=== PATIENT | female | born 1985 | race Caucasian/White ===

== ENCOUNTER 2021-07-25 09:41 | Day surgery (SDC) | payer OTHER ==
[2021-07-25 09:54] VITALS: BMI 21.6
[2021-07-25] MEDS ORDERED: KETOROLAC TROMETHAMINE 30 MG/1 ML VIAL IVPUSH ONE (10:38)
[2021-07-25] MEDS ORDERED: KETOROLAC TROMETHAMINE 60 MG/2 ML VIAL IM ONE (11:01)
[2021-07-25 11:11] LABS: HCG,QUALITATIVE URINE Positive
[2021-07-25 11:12] LABS: PH,URINE 6.5 (5.0-8.0); URINE APPEARANCE CLEAR; URINE BILIRUBIN NEGATIVE (NEGATIVE); URINE COLOR YELLOW; URINE GLUCOSE (UA) NEGATIVE (NEGATIVE); URINE KETONE TRACE (NEGATIVE); URINE LEUK ESTERASE NEGATIVE (NEGATIVE); URINE NITRITE NEGATIVE (NEGATIVE); URINE PROTEIN NEGATIVE (NEGATIVE)
[2021-07-25] MEDS ORDERED: KETOROLAC TROMETHAMINE 60 MG/2 ML VIAL ONE (11:17)
[2021-07-25 11:34] LABS: BASO % 0.4 % (0-2.0); EOS % 0.6 % (0-4.5); HEMATOCRIT 36.8 % (32.4-45.2); HEMOGLOBIN 12.6 GM/dL (10.7-15.3); LYMPH % 21.9 % (8-40); MCH 30.6 pg (25.7-33.7); MCHC 34.3 g/dl (32.0-36.0); MEAN CELL VOLUME 89.2 fl (80-96); MEAN PLT VOLUME 8.3 fl (7.5-11.1); MONO % 5.3 % (3.8-10.2); NEUT % 71.8 % (42.8-82.8); PLATELET COUNT 214 10^3/uL (134-434); RBC 4.13 M/mm3 (3.60-5.2); WHITE BLOOD COUNT 7.6 K/mm3 (4.0-10.0)
[2021-07-25 11:52] LABS: ALBUMIN 4.3 g/dl (3.4-5.0)
[2021-07-25 11:55] LABS: CREATININE 0.6 mg/dL (0.55-1.3)
[2021-07-25 11:56] LABS: BILIRUBIN,TOTAL 0.5 mg/dL (0.2-1)
[2021-07-25 11:57] LABS: TOT PROT 7.7 g/dl (6.4-8.2)
[2021-07-25] MEDS ORDERED: SODIUM CHLORIDE 1,000 ML IV STA (13:36)
[2021-07-25 14:17] LABS: PROTHROMBIN TIME (PATIENT) 11.5 SEC (9.7-13.0)
[2021-07-25 16:54] LABS: BASO % 0.7 % (0-2.0); EOS % 1.1 % (0-4.5); HEMATOCRIT 34.1 % (32.4-45.2); HEMOGLOBIN 11.4 GM/dL (10.7-15.3); MCHC 33.4 g/dl (32.0-36.0); MEAN CELL VOLUME 89.8 fl (80-96); MEAN PLT VOLUME 8.4 fl (7.5-11.1); MONO % 7.5 % (3.8-10.2); NEUT % 49.7 % (42.8-82.8); PLATELET COUNT 200 10^3/uL (134-434); RDW 13.9 % (11.6-15.6); WHITE BLOOD COUNT 7.7 K/mm3 (4.0-10.0)
[2021-07-25] MEDS ORDERED: LIDOCAINE HCL/PF 2% SDV 5ML VIAL ONE (17:16)
[2021-07-25] MEDS ORDERED: DEXAMETHASONE SOD PHOSPHATE 4 MG/1 ML VIAL ONE (17:16)
[2021-07-25] MEDS ORDERED: ONDANSETRON 4 MG/2 ML VIAL ONE (17:16)
[2021-07-25] MEDS ORDERED: GLYCOPYRROLATE 0.2 MG/1 ML VIAL ONE (17:16)
[2021-07-25] MEDS ORDERED: fentaNYL CITRATE 250 MCG/5 ML VIAL ONE ×2 (17:17→18:43)
[2021-07-25] MEDS ORDERED: ROCURONIUM BROMIDE 100 MG/10 ML VIAL ONE (17:17)
[2021-07-25] MEDS ORDERED: NEOSTIGMINE METHYLSULFATE 0.5 MG/ML - 10 ML MDV ONE (17:17)
[2021-07-25] MEDS ORDERED: PROPOFOL 20 ML ONE (17:17)
[2021-07-25] MEDS ORDERED: MIDAZOLAM HCL 2 MG/2 ML SINGLE DOSE VIAL ONE (17:17)
[2021-07-25] MEDS ORDERED: ceFAZolin SODIUM 1 GM VIAL IVPB ONE (17:50)
[2021-07-25] MEDS ORDERED: METOPROLOL TARTRATE 5 MG/5 ML VIAL ONE (18:38)
[2021-07-25] MEDS ORDERED: IBUPROFEN 600 MG TABLET (FP) PO PRN (18:49)
[2021-07-25] MEDS ORDERED: ONDANSETRON 4 MG/2 ML VIAL IVPUSH PRN ×2 (18:49→19:02)
[2021-07-25] MEDS ORDERED: IBUPROFEN 800 MG/8 ML IJ IVPB PRN (18:49)
[2021-07-25] MEDS ORDERED: ACETAMINOPHEN 1000 MG/100 ML BAG IVPB ONE (18:51)
[2021-07-25] MEDS ORDERED: ELECTROLYTE-148 SOLN 1,000 ML IV SCH (19:00)
[2021-07-25] MEDS ORDERED: ACETAMINOPHEN INJECTION 100 ML IVPB ONE (19:12)
[2021-07-25] MEDS ORDERED: LACTATED RINGERS SOLUTION 1,000 ML IV SCH (19:15)
[2021-07-25] MEDS: oxyCODONE HCL 5 MG TABLET PO PRN (23:09)
[2021-07-26] MEDS: oxyCODONE HCL 5 MG TABLET PO PRN ×2 (02:10→09:34)
[2021-07-26 07:50] LABS: HEMATOCRIT 29.2 % (32.4-45.2); HEMOGLOBIN 9.7 GM/dL (10.7-15.3); MCHC 33.1 g/dl (32.0-36.0); MEAN CELL VOLUME 90.4 fl (80-96); MEAN PLT VOLUME 8.6 fl (7.5-11.1); PLATELET COUNT 174 10^3/uL (134-434); RBC 3.22 M/mm3 (3.60-5.2); RDW 13.7 % (11.6-15.6); WHITE BLOOD COUNT 7.1 K/mm3 (4.0-10.0)
[2021-07-26 14:24] VITALS: BP 121/71; PULSE 68; TEMP 98.7
== END 2021-07-26 14:59 | disposition home or self-care (01) ==
LOC: JER 09:41 → UNDOADMIN 13:45 → JERBED 13:45 → JASUSAT 13:45 → J6S 20:39 → JASUSAT 07-26 14:59
PROVIDERS: ATTEND Obstetrics & Gynecology
PROC: 3E03329 Introduction of Other Anti-infective into Peripheral Vein, Percutaneous Approach (ICD-10-PCS; 2021-07-25)
PROC: 3E033NZ Introduction of Analgesics, Hypnotics, Sedatives into Peripheral Vein, Percutaneous Approach (ICD-10-PCS; 2021-07-25)
PROC: 3E0333Z Introduction of Anti-inflammatory into Peripheral Vein, Percutaneous Approach (ICD-10-PCS; 2021-07-25)
PROC: 3E0233Z Introduction of Anti-inflammatory into Muscle, Percutaneous Approach (ICD-10-PCS; 2021-07-25)
PROC: 3E033GC Introduction of Other Therapeutic Substance into Peripheral Vein, Percutaneous Approach (ICD-10-PCS; 2021-07-25)
PROC: 3E033GC Introduction of Other Therapeutic Substance into Peripheral Vein, Percutaneous Approach (ICD-10-PCS; 2021-07-25)
PROC: 3E0337Z Introduction of Electrolytic and Water Balance Substance into Peripheral Vein, Percutaneous Approach (ICD-10-PCS; 2021-07-25)
PROC: 3E0333Z Introduction of Anti-inflammatory into Peripheral Vein, Percutaneous Approach (ICD-10-PCS; principal; 2021-07-25 18:30)
DX: O00.102 Left tubal pregnancy without intrauterine pregnancy (principal); N93.9 Abnormal uterine and vaginal bleeding, unspecified
CPT/HCPCS: 36415; 76817-TC; 80053; 81003; 84702; 84703; 85025; 85027; 85610; 86850; 86900; 86901; 87086; 88305-TC; 93005; 93010; 94760; 99285-25; C9803; J0131; U0003; U0005

== ENCOUNTER 2023-04-29 15:04 | Emergency (ER) | payer OTHER ==
[2023-04-29 15:59] VITALS: BP 106/59; PULSE 73; RESP 19; TEMP 98.2; BMI 21.6
[2023-04-29 19:09] LABS: BASO % 0.4 % (0-2.0); EOS % 1.2 % (0-4.5); HEMATOCRIT 36.9 % (32.4-45.2); HEMOGLOBIN 12.6 GM/dL (10.7-15.3); LYMPH % 38.1 % (8-40); MCH 30.4 pg (25.7-33.7); MCHC 34.1 g/dl (32.0-36.0); MEAN CELL VOLUME 89.1 fl (80-96); MONO % 6.8 % (3.8-10.2); NEUT % 53.5 % (42.8-82.8); PLATELET COUNT 220 10^3/uL (134-434); RBC 4.15 M/mm3 (3.60-5.2); RDW 13.9 % (11.6-15.6); WHITE BLOOD COUNT 9.6 K/mm3 (4.0-10.0)
[2023-04-29 19:16] LABS: URINE APPEARANCE CLEAR; URINE BILIRUBIN NEGATIVE (NEGATIVE); URINE COLOR YELLOW; URINE GLUCOSE (UA) NEGATIVE (NEGATIVE); URINE KETONE TRACE (NEGATIVE); URINE LEUK ESTERASE NEGATIVE (NEGATIVE); URINE NITRITE NEGATIVE (NEGATIVE); URINE PROTEIN NEGATIVE (NEGATIVE)
[2023-04-29 20:05] LABS: POTASSIUM 4.2 mmol/L (3.5-5.1)
[2023-04-29 20:07] LABS: CALCIUM 8.9 mg/dL (8.5-10.1)
[2023-04-29 20:08] LABS: ALBUMIN 4.1 g/dl (3.4-5.0); BLOOD UREA NITROGEN 14.8 mg/dL (7-18)
[2023-04-29 20:11] LABS: CREATININE 0.8 mg/dL (0.55-1.3)
[2023-04-29 20:12] LABS: BILIRUBIN,TOTAL 0.3 mg/dL (0.2-1)
[2023-04-29 20:13] LABS: TOT PROT 7.5 g/dl (6.4-8.2)
[2023-04-29] MEDS ORDERED: LIDOCAINE 4% PATCH TP ONE (21:20)
[2023-04-29] MEDS ORDERED: LIDOCAINE PATCH REMOVAL MC SCH (22:00)
== END 2023-04-29 21:12 | disposition home or self-care (01) ==
LOC: JER 15:04
DX: O26.899 Other specified pregnancy related conditions, unspecified trimester (principal); R10.32 Left lower quadrant pain; Z3A.00 Weeks of gestation of pregnancy not specified
CPT/HCPCS: 36415; 76817-TC; 80053; 81003; 84702; 84703; 85025; 87086; 99284-25

== ENCOUNTER 2023-05-02 10:09 | Emergency (ER) | payer OTHER ==
[2023-05-02 10:14] VITALS: BP 113/58; PULSE 75; RESP 18; TEMP 98; BMI 22.1
== END 2023-05-02 11:45 | disposition home or self-care (01) ==
LOC: JERFT 10:09 → JER 10:09 → JERFT 11:45
DX: R89.1 Abnormal level of hormones in specimens from other organs, systems and tissues (principal)
CPT/HCPCS: 36415; 84702; 99283-25

== ENCOUNTER 2023-05-12 06:21 | Day surgery (SDC) | payer OTHER ==
[2023-05-12 07:03] VITALS: BMI 22.1
[2023-05-12] MEDS ORDERED: LACTATED RINGERS SOLUTION 1000 ML INFUS.BAG IV ONE (07:21)
[2023-05-12] MEDS ORDERED: ACETAMINOPHEN 1000 MG/100 ML BAG IVPB ONE (07:21)
[2023-05-12 07:45] LABS: URINE APPEARANCE CLEAR; URINE BILIRUBIN NEGATIVE (NEGATIVE); URINE COLOR YELLOW; URINE GLUCOSE (UA) NEGATIVE (NEGATIVE); URINE KETONE NEGATIVE (NEGATIVE); URINE LEUK ESTERASE NEGATIVE (NEGATIVE); URINE NITRITE NEGATIVE (NEGATIVE); URINE PROTEIN NEGATIVE (NEGATIVE)
[2023-05-12 08:33] LABS: BASO % 0.4 % (0-2.0); EOS % 0.1 % (0-4.5); HEMATOCRIT 36.4 % (32.4-45.2); HEMOGLOBIN 12.2 GM/dL (10.7-15.3); LYMPH % 14.6 % (8-40); MCH 30.3 pg (25.7-33.7); MCHC 33.5 g/dl (32.0-36.0); MEAN CELL VOLUME 90.5 fl (80-96); MEAN PLT VOLUME 8.4 fl (7.5-11.1); NEUT % 78.9 % (42.8-82.8); PLATELET COUNT 199 10^3/uL (134-434); RBC 4.02 M/mm3 (3.60-5.2); RDW 13.5 % (11.6-15.6)
[2023-05-12 08:40] LABS: PROTHROMBIN TIME (PATIENT) 11.6 SEC (9.7-13.0)
[2023-05-12 09:05] LABS: POTASSIUM 3.9 mmol/L (3.5-5.1)
[2023-05-12 09:07] LABS: ALBUMIN 3.9 g/dl (3.4-5.0); BLOOD UREA NITROGEN 8.2 mg/dL (7-18); CALCIUM 8.5 mg/dL (8.5-10.1)
[2023-05-12 09:10] LABS: CREATININE 0.6 mg/dL (0.55-1.3)
[2023-05-12 09:12] LABS: BILIRUBIN,TOTAL 0.4 mg/dL (0.2-1); TOT PROT 7.1 g/dl (6.4-8.2)
[2023-05-12] MEDS ORDERED: ONDANSETRON 4 MG/2 ML VIAL IVPUSH PRN (12:17)
[2023-05-12] MEDS ORDERED: LACTATED RINGERS SOLUTION 1,000 ML IV SCH (12:30)
[2023-05-12] MEDS ORDERED: LIDOCAINE HCL/PF 2% SDV 5ML VIAL ONE (12:40)
[2023-05-12] MEDS ORDERED: FENTANYL CITRATE/PF 50 MCG/ML VIAL ONE ×3 (12:40→13:23)
[2023-05-12] MEDS ORDERED: MIDAZOLAM HCL 2 MG/2 ML SINGLE DOSE VIAL ONE (12:41)
[2023-05-12] MEDS ORDERED: ROCURONIUM BROMIDE 50 MG/5 ML SYRINGE ONE (12:41)
[2023-05-12] MEDS ORDERED: BUPIVACAINE HCL/PF 0.5% (5MG/ML) 10 ML VIAL ONE (13:10)
[2023-05-12] MEDS ORDERED: LIDOCAINE HCL 1%, 10 MG/ML (20ML VIAL) ONE (13:10)
[2023-05-12] MEDS ORDERED: LIDOCAINE HCL 1%, 10 MG/ML (20ML VIAL) NR ONE ×2 (13:36)
[2023-05-12] MEDS ORDERED: BUPIVACAINE HCL/PF 0.5% (5MG/ML) 10 ML VIAL IJ ONE ×2 (13:36)
[2023-05-12] MEDS ORDERED: NEOSTIGMINE METHYLSULFATE 0.5 MG/1 ML - 10 ML MDV ONE (14:04)
[2023-05-12] MEDS ORDERED: IBUPROFEN 400 MG TABLET (FP) PO ONE ×2 (14:27→17:00)
[2023-05-12] MEDS ORDERED: oxyCODONE HCL 5 MG TABLET PO ONE ×2 (14:27→17:00)
[2023-05-12 16:11] LABS: BASO % 0.3 % (0-2.0); EOS % 0.3 % (0-4.5); HEMATOCRIT 29.4 % (32.4-45.2); LYMPH % 19.6 % (8-40); MCH 30.3 pg (25.7-33.7); MCHC 33.9 g/dl (32.0-36.0); MEAN CELL VOLUME 89.4 fl (80-96); MEAN PLT VOLUME 8.4 fl (7.5-11.1); MONO % 7.5 % (3.8-10.2); NEUT % 72.3 % (42.8-82.8); PLATELET COUNT 167 10^3/uL (134-434); RBC 3.29 M/mm3 (3.60-5.2); RDW 13.5 % (11.6-15.6); WHITE BLOOD COUNT 8.7 K/mm3 (4.0-10.0)
[2023-05-12 16:13] VITALS: BP 116/55; PULSE 74; RESP 20; TEMP 98.9
== END 2023-05-12 18:18 | disposition home or self-care (01) ==
LOC: JER 06:21 → JERBED 10:09 → UNDOADMOB 10:09 → JASUSAT 12:07 → J8W 15:53 → JASUSAT 18:18
PROVIDERS: ATTEND Student in an Organized Health Care Education/Training Program
PROC: 0UT54ZZ Resection of Right Fallopian Tube, Percutaneous Endoscopic Approach (ICD-10-PCS; principal; 2023-05-12 13:00)
DX: O00.101 Right tubal pregnancy without intrauterine pregnancy (principal)
CPT/HCPCS: 0241U-QW; 36415; 76830-TC; 80053; 81003; 84702; 85025; 85610; 85730; 86850; 86900; 86901; 87086; 88305-TC; 93005; 93010; 94760; 99285-25

== ENCOUNTER 2023-12-12 09:00 | Emergency (ER) | payer OTHER ==
[2023-12-12 09:13] VITALS: BP 90/58; PULSE 63; RESP 18; TEMP 98.2; BMI 23.0
[2023-12-12 10:16] LABS: BASO % 0.8 % (0-2.0); EOS % 4.4 % (0-4.5); HEMATOCRIT 37.5 % (32.4-45.2); HEMOGLOBIN 12.8 GM/dL (10.7-15.3); LYMPH % 27.7 % (8-40); MCH 30.9 pg (25.7-33.7); MEAN CELL VOLUME 90.9 fl (80-96); MEAN PLT VOLUME 8.9 fl (7.5-11.1); MONO % 9.9 % (3.8-10.2); NEUT % 57.2 % (42.8-82.8); PLATELET COUNT 216 10^3/uL (134-434); RBC 4.12 M/mm3 (3.60-5.2); WHITE BLOOD COUNT 8.2 K/mm3 (4.0-10.0)
[2023-12-12] MEDS ORDERED: IBUPROFEN 400 MG TABLET (FP) PO ONE (10:16)
[2023-12-12] MEDS: IBUPROFEN 400 MG TABLET (FP) PO ONE (10:19)
[2023-12-12 11:02] LABS: POTASSIUM 4.4 mmol/L (3.5-5.1)
[2023-12-12 11:04] LABS: CALCIUM 8.9 mg/dL (8.5-10.1)
[2023-12-12 11:05] LABS: ALBUMIN 3.8 g/dl (3.4-5.0); BLOOD UREA NITROGEN 8.4 mg/dL (7-18)
[2023-12-12 11:08] LABS: CREATININE 0.7 mg/dL (0.55-1.3)
[2023-12-12 11:09] LABS: BILIRUBIN,TOTAL 0.4 mg/dL (0.2-1); TOT PROT 7.3 g/dl (6.4-8.2)
[2023-12-12] MEDS ORDERED: DEXAMETHASONE SOD PHOSPHATE 10 MG/1 ML VIAL ONE (11:21)
[2023-12-12] MEDS: DEXAMETHASONE SOD PHOSPHATE 10 MG/1 ML VIAL PO ONE (11:23)
== END 2023-12-12 11:42 | disposition home or self-care (01) ==
LOC: JERFT 09:00
DX: J02.9 Acute pharyngitis, unspecified (principal)
CPT/HCPCS: 36415; 80053; 85025; 86308; 87651; 99283-25; J1100